=== PATIENT | female | born 1985 | race Two or more races ===

== ENCOUNTER 2023-07-31 19:29 | Emergency (ER) | payer MEDICAID, OTHER ==
[~2023-07-31] VITALS: Ht 149.9 cm; Wt 68.2 kg
[2023-07-31] MEDS ORDERED: LORazepam 2MG/ML-1ML VIAL IV ONE (20:00)
[2023-07-31] MEDS ORDERED: KETOROLAC TROMETH 30 MG/ML 1ML VIAL IV ONE (20:00)
[2023-07-31] MEDS ORDERED: ONDANSETRON HCL 4 MG/2 ML VIAL IV ONE (20:00)
[2023-07-31] MEDS ORDERED: AZITHROMYCIN 500MG/ 250ML 250 ML IV ONE (20:00)
[2023-07-31] MEDS ORDERED: SODIUM CHLORIDE 0.9% 1,000 ML IV ONE (20:00)
[2023-07-31 20:28] LABS: Basophils # (auto) 0 10 ^3/uL (0-0.2); Basophils % (auto) 0.1 % (0.0-2.0); Eosinophils # (auto) 0 10 ^3/uL (0-0.8); Eosinophils % (auto) 0.1 % (0.0-7.0); Hematocrit 40.6 % (36.0-46.0); Hemoglobin 13.2 g/dL (12.2-16.2); Lymphocytes # (auto) 0.6 10 ^3/uL (0.4-5.4); Lymphocytes % (auto) 4.5 % (10.0-50.0); Mean Corpuscular Hemoglobin 27.7 pg (28.0-32.0); Mean Corpuscular Hgb Conc. 32.5 g/dL (32.0-36.0); Mean Corpuscular Volume 85.2 fL (80.0-100.0); Monocytes # (auto) 0.5 10 ^3/uL (0-1.3); Monocytes % (auto) 3.8 % (0.0-12.0); Neutrophils # (auto) 13.2 10 ^3/uL (1.6-8.6); Neutrophils % (auto) 91.5 % (37.0-80.0); Red Blood Cells 4.76 10^6/uL (4.0-5.20); Red Cell Distribution Width 14.6 % (11.8-14.3); White Blood Cell 14.4 10^3/uL (4.4-10.8)
[2023-07-31 20:35] LABS: Chloride 105 mmol/L (98-107); Potassium 3.7 mmol/L (3.5-5.1); Sodium 138 mmol/L (136-145)
[2023-07-31 20:36] LABS: Anion Gap 11 (5-15); Carbon Dioxide 22 mmol/L (20-30)
[2023-07-31 20:42] LABS: BUN/Creatinine Ratio 12.3 (10.0-20.0); Blood Urea Nitrogen 10 mg/dL (9-23); Glucose 120 mg/dL (74-106)
[2023-07-31] MEDS ORDERED: LOPERAMIDE 1 mg/7.5ml ORAL soln PO ONE (22:45)
[2023-08-01 00:49] VITALS: BP 115/74; PULSE 107; RESP 20; TEMP 98.5; O2SAT 100
[2023-08-01] MEDS ORDERED: LOPERAMIDE HCL 2 MG CAP/TAB PO ONE (01:15)
== END 2023-08-01 03:05 | disposition home or self-care (01) ==
LOC: ER 19:29 → EDBD 19:29 → ER 08-01 03:05
DX: A08.4 Viral intestinal infection, unspecified (principal); R10.2 Pelvic and perineal pain; F41.9 Anxiety disorder, unspecified; F15.90 Other stimulant use, unspecified, uncomplicated; Z98.890 Other specified postprocedural states
CPT/HCPCS: 36415; 74176; 80048; 84702; 85025; 96365; 96366; 96375; 99285; J0456; J1885; J2060; J2405